=== PATIENT | female | born 1950 | race Caucasian/White ===

== ENCOUNTER 2017-04-07 10:09 | Emergency (ER) | payer MEDICARE, OTHER ==
[~2017-04-07] VITALS: Ht 165.1 cm; Wt 136.1 kg
[2017-04-07 10:11] VITALS: BP 146/89
[2017-04-07] MEDS ORDERED: FLUT30CR5 TP (10:42)
[2017-04-07] MEDS ORDERED: PRED20TA PO (10:42)
[2017-04-07] MEDS ORDERED: DIPH25CA58 PO (10:42)
[2017-04-07] MEDS ORDERED: BENZ100C PO (10:43)
--- NOTE | 2017-04-07 10:43 | PHYS DOC ---
Past History Past Medical History: Diabetes, High Cholesterol, Hypertension, Other Past Surgical History: Appendectomy, Cholecystectomy, Hysterectomy, Other Alcohol Use: None Drug Use: None Adult General Chief Complaint Chief Complaint: SKIN RASH/ABSCESS HPI HPI This is a pleasant 66-year-old female who presents with a contact dermatitis on her right-sided chin cheek and her right ear that began after weeding her garden yesterday. She denies any fevers or chills, she's had a slight cough nonproductive in nature, with no change in voice. Patient denies any fevers, chills, vision changes or foreign body sensation within her eyes. She denies any direct trauma problems swallowing or sick contact. Had the same reaction before after weeding her garden typically comes into the emergency department by her primary care doctor's office for a shot of steroids as she says. Review of Systems Review of Systems Constitutional: Denies fever or chills [] Eyes: Denies change in visual acuity, redness, or eye pain [] HENT: Denies nasal congestion or sore throat [] Respiratory: Denies shortness of breath does complain of a slight cough nonproductive in nature. Cardiovascular: No additional information not addressed in HPI [] GI: Denies abdominal pain, nausea, vomiting, bloody stools or diarrhea [] : Denies dysuria or hematuria [] Musculoskeletal: Denies back pain or joint pain [] Integument: She has a rash to her right-sided face. It is not dermatomal in nature with no vesicles. Neurologic: Denies headache, focal weakness or sensory changes [] Endocrine: Denies polyuria or polydipsia [] Current Medications Current Medications Current Medications Medications (Trade) Dose Ordered Sig/Elkin Start Time Stop Time Status Last Admin Dose Admin Dexamethasone Sodium Phosphate (Decadron) 10 mg 1X ONCE 04/07/17 10:45 04/07/17 10:46 Allergies Allergies Allergies Coded Allergies Type Severity Reaction Last Updated Verified No Known Drug Allergies 04/07/17 No Physical Exam Physical Exam Vital signs noted mild hypertension. Constitutional: Well developed, well nourished, no acute distress, non-toxic appearance. [] HENT: Normocephalic, atraumatic, bilateral external ears normal, oropharynx moist, no oral exudates, nose normal. [] Eyes: PERRLA, EOMI, conjunctiva normal, no discharge. [] Neck: Normal range of motion, no tenderness, supple, no stridor. [] Cardiovascular:Heart rate regular rhythm, no murmur [] Lungs & Thorax: Bilateral breath sounds clear to auscultation [] Skin: Warm, dry, patient has a slightly erythematous rash noted on the chin and cheek on the right. It is not dermatomal in nature there is no vesicles. Her TMs are clear with no evidence of Mendez sign or vesicles on the TMs themselves. Patient has no evidence of purpura, petechiae or warmth consistent with a cellulitis. There is slight blanching of the rash. Extremities: No tenderness, no cyanosis, no clubbing, ROM intact, no edema. [] Neurologic: Alert and oriented X 3, normal motor function, normal sensory function, no focal deficits noted. [] Psychologic: Affect normal, judgement normal, mood normal. [] EKG EKG [] Radiology/Procedures Radiology/Procedures [] Course & Med Decision Making Course & Med Decision Making Pertinent Labs and Imaging studies reviewed. (See chart for details) patient presents with a contact dermatitis. She was offered oral Decadron and topical antihistamine/steroid cream to treat her symptoms. Also offered Tessalon Perles her nonproductive cough. There is no evidence of angioedema, herpes ophthalmicus , or other facial cellulitis or abscess. [] Dragon Disclaimer Dragon Disclaimer This chart was dictated in whole or in part using Voice Recognition software in a busy, high-work load, and often noisy Emergency Department environment. It may contain unintended and wholly unrecognized errors or omissions. Departure Departure: Impression: Primary Impression: Contact dermatitis Additional Impression: Cough Disposition: 01 HOME, SELF-CARE Condition: STABLE Referrals: ESVIN CERNA MD (PCP) Patient Instructions: Contact Dermatitis, Cough, Adult Additional Instructions: These return for any new or increasing symptoms or if you have any questions or concerns. I would advise that you follow-up with your primary care doctor for continued symptoms that are not improving with topical creams and oral steroids. I would also encourage her to return immediately for any change in her voice difficulty swallowing or breathing. Scripts Benzonatate (TESSALON PERLE) 100 Mg Capsule 1 CAP PO TID, #21 CAP Prov: JOE PETERSON MD 04/07/17 Prednisone (PREDNISONE) 20 Mg Tablet 3 TAB PO DAILY for 5 Days, #15 TAB Prov: JOE PETERSON MD 04/07/17 Fluticasone Propionate (CUTIVATE) 30 Gm Cream..g. 1 VERONIQUE TP BID, #60 GM 1 Refill Prov: JOE PETERSON MD 04/07/17 Diphenhydramine Hcl (BENADRYL) 25 Mg Capsule 25 MG PO QID for 7 Days, #28 CAP Prov: JOE PETERSON MD 04/07/17 Problem Qualifiers JOE PETERSON MD Apr 07, 2017 10:43
[2017-04-07] MEDS ORDERED: DEXAMETHASONE SOD PHOS 10 MG/ML VIAL IV ONE (10:45)
[2017-04-07] MEDS ORDERED: DEXAMETHASONE SOD PHOS 10 MG/ML VIAL PO ONE (10:45)
== END 2017-04-07 10:47 | disposition home or self-care (01) ==
LOC: ER 10:09
DX: L25.9 Unspecified contact dermatitis, unspecified cause (principal); R05 Cough; E11.9 Type 2 diabetes mellitus without complications; E78.00 Pure hypercholesterolemia, unspecified; I10 Essential (primary) hypertension
CPT/HCPCS: 99283; J1100

== ENCOUNTER 2018-01-14 13:39 | Emergency (ER) | payer MEDICARE, OTHER ==
[~2018-01-14] VITALS: Ht 165.1 cm; Wt 136.1 kg
[~2018-01-14 13:39] MED LIST: BENZ100C PO; DIPH25CA58 PO; FLUT30CR5 TP; PRED20TA PO
[2018-01-14 13:45] VITALS: BP 181/76
--- NOTE | 2018-01-14 14:23 | PHYS DOC ---
Past History Past Medical History: Diabetes, High Cholesterol, Hypertension, Other Past Surgical History: Appendectomy, Cholecystectomy, Hysterectomy, Other Alcohol Use: None Drug Use: None Adult General Chief Complaint Chief Complaint: ALLERGIC REACTION HPI HPI 67-year-old female presents with contact dermatitis from plant exposure or guarding. It is likely poison shane, but the patient is unsure. She tends to get this each spring when she is working in her garden. She has lesions on her right hand, under her chin, her right cheek and it may be starting on her lower legs. It is pruritic with vesicles. Patient denies any difficulty with breathing or swallowing. She feels otherwise healthy. The patient is a diabetic on insulin. Review of Systems Review of Systems Constitutional: Denies fever or chills [] Eyes: Denies change in visual acuity, redness, or eye pain [] HENT: Denies nasal congestion or sore throat [] Respiratory: Denies cough or shortness of breath [] Cardiovascular: No additional information not addressed in HPI [] GI: Denies abdominal pain, nausea, vomiting, bloody stools or diarrhea [] : Denies dysuria or hematuria [] Musculoskeletal: Denies back pain or joint pain [] Integument: Scattered areas of rash that is pruritic [] Neurologic: Denies headache, focal weakness or sensory changes [] Endocrine: Denies polyuria or polydipsia [] All other systems were reviewed and found to be within normal limits, except as documented in this note. Allergies Allergies Allergies Coded Allergies Type Severity Reaction Last Updated Verified No Known Drug Allergies 04/07/17 No Physical Exam Physical Exam Constitutional: Well developed, well nourished, no acute distress, non-toxic appearance. [] HENT: Normocephalic, atraumatic, bilateral external ears normal, oropharynx moist, no oral exudates, nose normal. [] Eyes: PERRLA, EOMI, conjunctiva normal, no discharge. [] Neck: Normal range of motion, no tenderness, supple, no stridor. [] Cardiovascular:Heart rate regular rhythm, no murmur [] Lungs & Thorax: Bilateral breath sounds clear to auscultation [] Abdomen: Bowel sounds normal, soft, no tenderness, no masses, no pulsatile masses. [] Skin: Erythematous rash with vesicles on her cheek, chin and right hand. [] Back: No tenderness, no CVA tenderness. [] Extremities: No tenderness, no cyanosis, no clubbing, ROM intact, no edema. [] Neurologic: Alert and oriented X 3, normal motor function, normal sensory function, no focal deficits noted. [] Psychologic: Affect normal, judgement normal, mood normal. [] Current Patient Data Vital Signs Vital Signs Date Time Temp Pulse Resp B/P (MAP) Pulse Ox O2 Delivery O2 Flow Rate FiO2 01/14/18 13:45 98.2 94 18 97 Room Air EKG EKG [] Radiology/Procedures Radiology/Procedures [] Course & Med Decision Making Course & Med Decision Making Pertinent Labs and Imaging studies reviewed. (See chart for details) She has had prednisone treatment for this before and knows how to manage her insulin. He would prefer to start with an injection followed by oral taper. I will give her Solu-Medrol followed by 7 day taper of prednisone. Will do a short course taper because it is worked for her in the past without rebound and minimize the effect on her diabetes. [] Dragon Disclaimer Dragon Disclaimer This electronic medical record was generated, in whole or in part, using a voice recognition dictation system. Departure Departure: Referrals: ESVIN CERNA MD (PCP) Scripts Prednisone (PREDNISONE) 10 Mg Tablet 10 MG PO DAILY, #10 TAB Take 2 tabs daily starting tomorrow for 3 days, followed by 1 tab daily for 4 days. Prov: SAVANNA GLYNN DO 01/14/18 SAVANNA GLYNN DO January 14, 2018 14:23
[2018-01-14] MEDS ORDERED: PRED-220 PO (14:27)
[2018-01-14] MEDS ORDERED: methylPREDNISolone SOD SUCC PF 125 MG/2 ML VIAL. IM ONE (14:30)
== END 2018-01-14 14:33 | disposition home or self-care (01) ==
LOC: ER 13:39
DX: L25.9 Unspecified contact dermatitis, unspecified cause (principal); E11.9 Type 2 diabetes mellitus without complications; E78.00 Pure hypercholesterolemia, unspecified; I10 Essential (primary) hypertension; Z79.4 Long term (current) use of insulin
CPT/HCPCS: 96372; 99283; J2930

== ENCOUNTER 2019-01-18 09:40 | Emergency (ER) | payer MEDICARE, OTHER ==
[~2019-01-18] VITALS: Ht 165.1 cm; Wt 136.1 kg
[~2019-01-18 09:40] MED LIST changes: +PRED-220 PO
[2019-01-18 09:50] VITALS: BP 168/40
--- NOTE | 2019-01-18 09:56 | PHYS DOC ---
Past History Past Medical History: Diabetes, High Cholesterol, Hypertension, Other Past Surgical History: Appendectomy, Cholecystectomy, Hysterectomy, Other Alcohol Use: None Drug Use: None Adult General Chief Complaint Chief Complaint: SKIN RASH/ABSCESS [facility] Patient is a 68-year-old female who presents with complaint of rash to her forehead and upper eyelids. Patient states that she had been working out in her garden and thinks she may have gotten exposed to some poison oak or IV. Patient states that this happens almost every year and she comes in a steroid shot and states that that clears it up. She states that she was not able to get into her doctor either today or tomorrow. She denies any shortness of breath. Review of Systems Review of Systems Constitutional: Denies fever or chills [] Eyes: Denies change in visual acuity, redness, or eye pain [] Respiratory: Denies cough or shortness of breath [] Cardiovascular: No additional information not addressed in HPI [] Integument: Positive rash and itching[] Allergies Allergies Allergies Coded Allergies Type Severity Reaction Last Updated Verified No Known Drug Allergies 04/07/17 No Physical Exam Physical Exam Constitutional: Well developed, well nourished, no acute distress, non-toxic appearance. [] Cardiovascular:Heart rate regular rhythm, no murmur [] Lungs & Thorax: Bilateral breath sounds clear to auscultation [] Skin: Warm, dry. There is an erythematous, papular rash noted to the lower forehead and extending down onto the upper eyelids bilaterally. [] Extremities: No tenderness, no cyanosis, no clubbing, ROM intact. [] EKG EKG [] Radiology/Procedures Radiology/Procedures [] Course & Med Decision Making Course & Med Decision Making Pertinent Labs and Imaging studies reviewed. (See chart for details) [] Dragon Disclaimer Dragon Disclaimer This electronic medical record was generated, in whole or in part, using a voice recognition dictation system. Departure Departure: Impression: Primary Impression: Contact dermatitis Disposition: 01 HOME, SELF-CARE Condition: STABLE Referrals: ESVIN CERNA MD (PCP) Patient Instructions: Contact Dermatitis Problem Qualifiers Primary Impression: Contact dermatitis Contact dermatitis type: unspecified Contact dermatitis trigger: unspecified trigger Qualified Codes: L25.9 - Unspecified contact dermatitis, unspecified cause PALLAVI CADENA Jr. DO January 18, 2019 09:56
[2019-01-18] MEDS ORDERED: methylPREDNISolone SOD SUCC PF 125 MG/2 ML VIAL. IM ONE (10:00)
== END 2019-01-18 10:03 | disposition home or self-care (01) ==
LOC: ER 09:40
DX: L25.9 Unspecified contact dermatitis, unspecified cause (principal); E11.9 Type 2 diabetes mellitus without complications; E78.00 Pure hypercholesterolemia, unspecified; I10 Essential (primary) hypertension
CPT/HCPCS: 96372; 99283; J2930

== ENCOUNTER 2020-04-04 13:34 | Emergency (ER) | payer MEDICARE, OTHER ==
[~2020-04-04 13:34] MED LIST changes: +EPINEPHrine SYRINGE 1 MG/10 ML SYRINGE ONE; +NALOXONE 0.4 MG/ML VIAL. ONE; +SODIUM BICARB ADULT 8.4% 50 MEQ/50 ML DISP.SYRIN. ONE
--- NOTE | 2020-04-04 14:22 | PHYS DOC ---
Past History Past Medical History: Diabetes, High Cholesterol, Hypertension, Other Past Surgical History: Appendectomy, Cholecystectomy, Hysterectomy, Other Alcohol Use: None Drug Use: None General Adult EDM: Chief Complaint: Unresponsive HPI: HPI: 69-year-old female presents via EMS as a CODE BLUE. The patient was stated to have had an episode at home where she suddenly lost consciousness and went limp. Her did not find a pulse so he started CPR. His CPR was successful and the patient did wake up. EMS arrived and took over care of the patient and they were on the way to the emergency room when she suddenly collapsed and went unresponsive. She did not have a pulse. EMS began CPR. They were performing CPR when they arrived in the emergency room. We moved her to the bed and took over CPR in our trauma bay. The patient was unresponsive. We did not have a pulse. Review of Systems: Review of Systems: Unable to perform due to unresponsive Heart Score: Risk Factors: Risk Factors: DM, Current or recent (<one month) smoker, HTN, HLP, family history of CAD, obesity. Risk Scores: Score 0 - 3: 2.5% MACE over next 6 weeks - Discharge Home Score 4 - 6: 20.3% MACE over next 6 weeks - Admit for Clinical Observation Score 7 - 10: 72.7% MACE over next 6 weeks - Early Invasive Strategies Allergies: Allergies: Allergies Coded Allergies Type Severity Reaction Last Updated Verified metformin Allergy Unknown 01/18/19 Yes Physical Exam: PE: Constitutional: Well developed, morbidly obese, well nourished, severe acute distress. [] HENT: Normocephalic, atraumatic, bilateral external ears normal, oropharynx moist, no oral exudates, nose normal. [] Eyes: PERRLA, EOMI, conjunctiva normal, no discharge. [] Neck: supple, no stridor. [] Cardiovascular: Asystole [] Lungs & Thorax: Bilateral breath sounds diminished [] Abdomen: Large abdomen, vertical surgical scar over the central abdomen, recent, clean dry and intact. [] Skin: No signs of cellulitis [] Back: Unable to assess [] Extremities: no cyanosis, no clubbing [] Neurologic: Unresponsive [] Psychologic: Unable to assess [] Current Patient Data: Labs: Laboratory Tests Test 04/04/20 13:46 Glucose (Fingerstick) 284 mg/dL (70-99) H EKG: EKG: [] Radiology/Procedures: Radiology/Procedures: [] Course & Med Decision Making: Course & Med Decision Making Pertinent Labs and Imaging studies reviewed. (See chart for details) We performed multiple rounds of epinephrine while doing continuous compressions and breaths. See code chart for more details. Intubation was difficult. It required 3 attempts at the use of a bougie. The patient's tongue was quite enlarged and made direct visualization difficult even with the glide scope. She was intubated and oxygen saturations came up to 84% but were mostly in the 70s. We additionally gave her bicarbonate and Narcan. Neither of these had an effect. At 1 point we thought we had a wide-complex ventricular fibrillation. The patient was shocked once with no effect. Despite all of our efforts for about 30 minutes, the patient was pronounced at 1355. [] Dragon Disclaimer: Dragon Disclaimer: This electronic medical record was generated, in whole or in part, using a voice recognition dictation system. Intubation Procedure Intub Indication: [] CODE BLUE Consent: [] Implied Medications Used: [] None due to unresponsive state Procedure: The patient was placed in the supine position. I first attempted with a Reed for straight blade. The patient's twin habitus made this difficult. We went back to bagging the patient. My second attempt was with the glide scope. Her habitus and the angle of the blade was again problematic. My final attempt was with a bougie and a #3 MAC blade. The ET tube was then passed over the bougie, the bulb was inflated and a collar oximeter was placed. There was good color change. I personally auscultated the lungs and had breath sounds on both sides. No chest x-ray was performed because the patient . The patient tolerated the procedure. Complications: 3 attempts, difficult body habitus Departure Departure: Impression: Primary Impression: Sudden cardiac Additional Impression: Respiratory failure Disposition: 20 Condition: Referrals: ESVIN CERNA MD (PCP) Justification of Admission: Justification of Admission: Justification of Admission Dx: N/A SAVANNA GLYNN DO Apr 04, 2020 14:22
== END 2020-04-04 17:45 | disposition expired ==
LOC: ER 13:34
DX: J96.90 Respiratory failure, unspecified, unspecified whether with hypoxia or hypercapnia (principal); E11.9 Type 2 diabetes mellitus without complications; E78.00 Pure hypercholesterolemia, unspecified; I10 Essential (primary) hypertension; Z88.8 Allergy status to other drugs, medicaments and biological substances
CPT/HCPCS: 31500; 82947; 92950; 99285; J0171; J2310